=== PATIENT | female | born 1985 | race Caucasian/White ===

== ENCOUNTER 2022-09-18 20:32 | Emergency (ER) | payer OTHER, MEDICAID, SELFPAY ==
[2022-09-18 20:46] VITALS: BP 148/87; PULSE 107; RESP 16; TEMP 37.1; O2SAT 98; BMI 25.8
--- NOTE | 2022-09-18 22:43 | ED.DENTAL ---
HPI - Dental/Oral General Chief complaint: Dental/Oral Stated complaint: Abscessed tooth Time Seen by Provider: 09/18/22 22:43 Source: patient Mode of arrival: Ambulatory History of Present Illness HPI Narrative: 37-year-old female smoker presents with 1-2 days of dental pain. She states that she had a root canal 1-2 years ago and everything had been fine but yesterday a cap fell off and she is been having pain and woke up this morning with swelling. She has no difficulty swallowing or breathing. She is had no drainage. She denies any fever, chills nor nausea vomiting. Related Data Previous Rx's Medication Instructions Recorded amoxicillin 875 mg-potassium 1 tab PO Q12H #20 tabs 09/18/22 clavulanate 125 mg tablet hydrocodone 5 mg-acetaminophen 325 1 tab PO Q4-6H PRN pain #10 tabs 09/18/22 mg tablet ketorolac 10 mg tablet 10 mg PO Q6H PRN pain #14 tabs 09/18/22 Allergies Allergy/AdvReac Type Severity Reaction Status Date / Time No Known Drug Allergies Allergy Verified 09/18/22 22:53 Review of Systems Review of Systems Narrative: GENERAL: See HPI HEENT: See HPI RESPIRATORY: Denies dyspnea, cough, wheezing, hemoptysis, sputum. CARDIOVASCULAR: Denies chest pain, palpitations, orthopnea, edema, GASTROINTESTINAL: Denies nausea, vomiting, abdominal pain, diarrhea, constipation, melena. : Denies dysuria, frequency, incontinence, hematuria, urinary retention. MUSCULOSKELETAL: denies weakness, joint pain, or bony pain SKIN: Denies rash, skin lesions, or other NEUROLOGIC: Denies weakness, headache, numbness, change in speech, confusion, seizures, incoordination. PSYCHIATRIC: No concerning psychosocial issues. 12 point review of systems is negative except for those stated above Patient History Social History Smoking Status: Current some day smoker Smoking Status: Current some day smoker tobacco type: cigarettes alcohol intake frequency: holidays/special occasions only Substance Use Type: painkillers and other Exam Narrative Exam Narrative: GEN: AOx3 and in mild distress EYES: Pupils are equal, round, and reactive to light and accommodation. Extraoccular muscles are intact bilaterally. There is no subconjunctival hemorrhage or exudate. ENT: Minimal right upper lip swelling, no face swelling, mucous membranes moist. Minimal swelling just superior to tooth 7., no fluctuance or drainage. Airway patent CHEST: Lungs are clear to auscultation bilaterally and free of wheezes, rales, or rhonchi. Heart rate is regular rhythm, there are no murmurs, clicks, rubs, or gallops. There is no chest wall tenderness. ABD: Abdomen is soft and nontender. There is no guarding or rebound. Bowel sounds are normal in all 4 quadrants. There is no mass or organomegaly. EXT: Full painless ROM of all extremities with no loss of sensation or strength. SKIN: Warm, pink, and dry. No erythema or rash Initial Vital Signs Initial Vital Signs: Vital Signs Temperature 98.7 F 09/18/22 20:46 Pulse Rate 107 H 09/18/22 20:46 Respiratory Rate 16 09/18/22 20:46 Blood Pressure 148/87 H 09/18/22 20:46 Pulse Oximetry 98 09/18/22 20:46 Oxygen Delivery Method Room Air 09/18/22 20:46 Course Orders Ordered: Discontinued Medications Hydrocodone Bitart/Acetaminophen (Hydrocodone/Acet 5/325 Prepack) 1 bottle MISC SEEINSTR ONE Stop: 09/18/22 22:51 Amoxicillin/Clavulanate Potassium (Amoxicillin/Clav 875/125 Mg) 1 tab PO NOW ONE Stop: 09/18/22 22:51 Vital Signs Vital signs: Vital Signs - 8 hr 09/18/22 20:46 Temperature 98.7 F Pulse Rate 107 H Respiratory Rate 16 Blood Pressure 148/87 H Pulse Oximetry 98 Oxygen Delivery Method Room Air MDM - Dental/Oral MDM Narrative Medical decision making narrative: [37] year old patient presents with dental pain and minimal upper lip swelling Multiple etiologies for patient's symptoms considered including, but not limited to: [Dental abscess, dental jose, dental fracture versus other] No prior charts available Primary Historian: patient Minimal facial swelling and suspected odontogenic source. Intraoral exam reassuring and no evidence of a fluctuant mass or abscess that is amenable to draining. Patient controlling secretions, airway patent, tolerating orals without difficulty Patient's symptoms improved over duration of stay with above-stated therapies. Findings and discharge diagnosis discussed with patient/family followed by verbalization of understanding Return precautions discussed with patient/family whom verbalize understanding of diagnosis and plan Discharge Plan Departure Patient Disposition: Home Clinical Impression: Toothache, Dental abscess Instructions: Tooth Abscess, DI for Dental Pain Activity Restrictions/Additional Instructions: *You have been diagnosed with [dental infection] *What to do: *Please continue to take your regular medications as directed. [x ] New medication prescriptions sent to your pharmacy: [ [facility]] [ ] New medication written as a paper prescription [ ] No new medications given *Please follow up with your primary dental provider in 2-3 days, call for an appointment. Let them know you were seen in the Emergency Department and that we ask that you be seen in follow up. We will electronically transmit a record of today's note if your PCP is in our system * as we discussed I have included contact information for Dr. Hernandez who is the only dentist on staff here at the hospital. Please contact their office and see if they have openings, otherwise they are a good resource to help point you in the right direction *Return to Emergency Department if you should have any new, worsening or concerning symptoms, such as [fever greater than 101 F, shaking chills, worsening pain, persistent vomiting or other bothersome symptoms] Prescriptions: New hydrocodone-acetaminophen 5-325 mg tablet 1 tab PO Q4-6H PRN (Reason: pain) Qty: 10 0RF ketorolac 10 mg tablet 10 mg PO Q6H PRN (Reason: pain) Qty: 14 0RF amoxicillin-pot clavulanate 875-125 mg tablet 1 tab PO Q12H Qty: 20 0RF Stand Alone Forms: Patient Portal/API
[2022-09-18] MEDS: HYDROCODONE/ACET 5/325 PREPACK 1 BOTTLE MISC (22:56)
[2022-09-18] MEDS: AMOXICILLIN/CLAV 875/125 MG 1 TAB PO (22:56)
[2022-09-18 23:00] VITALS: BP 140/79; PULSE 100; RESP 16; O2SAT 99
== END 2022-09-18 23:03 | disposition home or self-care (01) ==
PROVIDERS: Emergency Provider Emergency Medicine
DX: K04.7 Periapical abscess without sinus (principal); K08.89 Other specified disorders of teeth and supporting structures
CPT/HCPCS: 99283